=== PATIENT | female | born 1945 | race Two or more races ===

== ENCOUNTER 2022-09-02 23:45 | Inpatient (IN) | payer MEDICARE, OTHER ==
[~2022-09-02] VITALS: Ht 160 cm; Wt 67.3 kg
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
[2022-09-03] MEDS: BLOOD SUGAR DIAGNOSTIC 1 EACH STRIP IN SCH ×2 (00:30→06:40)
[2022-09-03] MEDS ORDERED: INSULIN REGULAR, HUMAN 100 UNIT/ML 3 ML VIAL SQ PRN (00:30)
[2022-09-03] MEDS ORDERED: IV NS 0.9% 1,000 ML IV SCH (00:30)
[2022-09-03] MEDS ORDERED: MORPHINE SULFATE INJ 2 MG/ML DISP.SYRIN IV PRN (00:30)
[2022-09-03] MEDS ORDERED: DEXTROSE 50%-WATER 50 ML DISP.SYRIN IV PRN (00:30)
[2022-09-03] MEDS ORDERED: ONDANSETRON HCL/PF 4 MG/2 ML VIAL IVP PRN (00:30)
[2022-09-03] MEDS ORDERED: hydrALAZINE HCL IV 20 MG VIAL IV PRN (01:00)
--- NOTE | 2022-09-03 02:00 | NUR ---
MS KASSI NOTES PATIENT DAUGHTER NAME ALSO KINSEY CAME AND STARTED TALKING THE PATIENT. SHE STILL CONFUSED, BUT NO SIGNS OF ANY ACUTE DISTRESS NOTED. KINSEY STATES THAT HER MOM LIVES IN ASSISTED BEFORE AND SHE JUST GOT HOME 5 DAYS AGO . SHE SAID WHEN HER MOM IN FACILITY SHE GOT 2 X UTI AND THEY NOTICED THAT SHE'S GETTING CONFUSED SO THEY DECIDED THEM TO BRING HER TO THE HOSPITAL. KINSEY PROVIDED ME SOME INFORMATION ABOUT THE PATIENT AND THE LIST OF HER MEDICATION. SHE ALSO STATES THAT IF ITS OK IF THE PATIENT PUT ON RESTRAINT FOR PT SAFETY. FAMILY REFUSED TO PUT THE TELE MONITOR EVEN I EXPLAINED TO HER WHAT'S THE PURPOSE OF IT . SHE ALSO REFUSED TO HAVE BLOOD SUGAR CHECKED BECAUSE PT NO HX OF DIABETIC. ASSESSMENT DONE AND RECORDED. KEPT PT WARM AND COMFORTABLE AT ALL TIMES. WILL CONTINUE MONITORING. NOTIFY BULK PLANT SUPERVISOR .
[2022-09-03 02:03] VITALS: BP 140/77
[2022-09-03] MEDS: LORAZEPAM 1 MG TABLET PO PRN ×2 (03:02→09:45)
--- NOTE | 2022-09-03 03:02 | NUR ---
MS KASSI NOTES PT STILL ANXIOUS , ATIVAN GIVEN PO ORDERED . SOFT WRIST RESTRAINT ALSO APPLIED WELL. FAMILY AT THE BEDSIDE. NO SIGNS OF ANY ACUTE DISTRESS NOTED.
[2022-09-03] MEDS: ACETAMINOPHEN 325 MG TABLET PO PRN (03:59)
[2022-09-03 04:01] LABS: BASOPHILS % (AUTO) 0.2 % (0.0-2.0); EOSINOPHILS % (AUTO) 0.4 % (0.0-6.0); HEMATOCRIT 37 % (33-45); HEMOGLOBIN 11.9 g/dL (11.5-14.8); LYMPHOCYTES # (AUTO) 0.4 K/uL (0.8-4.8); LYMPHOCYTES % (AUTO) 4.2 % (20.0-44.0); MEAN CORPUSCULAR HGB CONC 32 g/dl (31.0-36.0); MEAN CORPUSCULAR VOLUME 98 fL (82-100); MONOCYTES # (AUTO) 0.9 K/uL (0.1-1.30); MONOCYTES % (AUTO) 8.8 % (2.0-12.0); NEUTROPHILS # (AUTO) 8.5 K/uL (1.8-8.9); NEUTROPHILS % (AUTO) 86.4 % (43.0-81.0); PLATELET COUNT (AUTO) 344 K/uL (150-450); WHITE BLOOD COUNT (AUTO) 9.9 K/uL (4.3-11.0)
[2022-09-03] MEDS ORDERED: METH-647 PO (05:20)
[2022-09-03] MEDS ORDERED: SYMBALTA (05:20)
[2022-09-03] MEDS ORDERED: LORA-258 PO (05:20)
[2022-09-03] MEDS ORDERED: APIX5TAB PO (05:20)
[2022-09-03] MEDS ORDERED: AMIO100T4 PO (05:20)
[2022-09-03] MEDS ORDERED: GABA-536 PO (05:20)
[2022-09-03] MEDS ORDERED: CARV12.52 PO ×2 (05:20→09:40)
[2022-09-03] MEDS ORDERED: FAMO20TA8 PO (05:20)
[2022-09-03] MEDS ORDERED: LOZARTAN PO (05:20)
--- NOTE | 2022-09-03 07:20 | NUR ---
LEASE ANALYST OPENING NOTES RECEIVED PATIENT IN BED ASLEEP BUT AROUSABLE , HUNGARIAN SPEAKER , FAMILY AT BED SIDE , PATIENT IS WITH RESTRAINT AT THIS TIME RELATED TO RISK FOR INJURY , ROOM AIR AND TOLERATED WELL , REFUSED FORMULA CLERK NO SOB OR DISTRESS NOTED , NO C/O OF PAIN AND DISCOMFORT , SAFETY MEASURES PROVIDED , CALL LIGHT WITHIN REACH AND WILL MONITOR FOR ANY CHANGES
--- NOTE | 2022-09-03 07:31 | NUR ---
STEM DRYER MAINTAINER CLOSING NOTES PT AWAKE AND ALERT , CALMED BUT STILL SOME CONFUSION NOTED. IVF NS AT 100 ML/HR INFUSING AT THIS TIME. PT STILL ON RESTRAINT EVEN FAMILY AT THE BEDSIDE BECAUSE PER FAMILY REQUESTED. PUREWICK DRAINING WELL. PT CALMED AFTER ATIVAN GIVEN EARLIER. KEPT HER WARM AND COMFORTABLE AT ALL TIMES. BED IN LOW AND LOCK IN POSITION WITH SIDE RAILS X3 UP. MRSA SWAB ALSO DONE. BLOOD SUGAR CHECKED DONE 110, NO INSULIN DUE AT THIS TIME. NO SIGNS OF HYPO GLYCEMIA NOTED. WILL ENDORSE TO AM NURSE FOR CONTINUITY OF CARE.
--- NOTE | 2022-09-03 07:50 | NUR ---
RN NOTES PATIENT C/O OF BACK PAIN 01/19 AND WITH ORDER OF MORPHINE IV , GIVEN ORDERED .
[2022-09-03 08:00] VITALS: BP 165/78
[2022-09-03] MEDS ORDERED: ENOXAPARIN SODIUM 40 MG/0.4 ML DISP.SYRIN SQ SCH (09:00)
[2022-09-03] MEDS ORDERED: DULO20CA PO (09:40)
[2022-09-03] MEDS: IV NS 0.9% 1,000 ML IV PRN (09:48)
[2022-09-03 09:52] LABS: CALCIUM, SERUM 8.5 mg/dL (8.5-10.1); CARBON DIOXIDE 23 mmol/L (21-32); CHLORIDE 104 mmol/L (98-107); CREATININE 0.5 mg/dL (0.6-1.3); GLUCOSE 112 mg/dL (74-106); POTASSIUM 3.8 mmol/L (3.5-5.1); SODIUM SERUM 136 mmol/L (136-145); UREA NITROGEN, BLOOD 7 mg/dL (7-18)
[2022-09-03] MEDS ORDERED: CARVEDILOL 12.5 MG TABLET PO PRN (11:30)
[2022-09-03 12:00] VITALS: BP_SYST 135
[2022-09-03] MEDS: AMIODARONE HCL 200 MG TABLET PO SCH (12:04)
[2022-09-03] MEDS: GABAPENTIN 400 MG CAPSULE PO SCH ×2 (12:06→17:07)
[2022-09-03] MEDS: METHOCARBAMOL (500MG) 500 MG TABLET PO SCH ×2 (12:06→17:07)
[2022-09-03] MEDS: CEFTRIAXONE 1 G in IV D5W 50 ML IV SCH (13:18)
[2022-09-03 16:00] VITALS: BP 138/82
[2022-09-03] MEDS: APIXABAN 5 MG TABLET PO SCH (17:08)
--- NOTE | 2022-09-03 18:41 | NUR ---
BOXING TRAINER CLOSING NOTES PATIENT IN BED AWAKE , A/OX , CONFUSED , EQUATORIAL GUINEAN SPEAKER , PATIENT IS WITH RESTRAINT AT THIS TIME RELATED TO DISRUPTION OF MEDICAL CARE , ROOM AIR AND TOLERATED WELL , ATTACHED TO CERAMIC PLATER WITH READING OF SR 89 HR , ALL DUE MEDS GIVEN ORDERED , NO SOB OR DISTRESS NOTED ,C/O OF PAIN AND DISCOMFORT AND MORPHINE GIVEN ORDERED AND WITH HELP , SAFETY MEASURES PROVIDED , CALL LIGHT WITHIN REACH AND WILL MONITOR FOR ANY CHANGES
[2022-09-03 20:00] VITALS: BP 142/70
--- NOTE | 2022-09-03 20:00 | NUR ---
ALARM TECHNICIAN OPENING NOTE RECEIVED PATIENT IN BED ASLEEP BUT EASY TO ARISE. PT A/O X1, CONFUSED, AND GAMBIAN SPEAKING. PATIENT IS ON BILATERAL SOFT WRIST RESTRAINTS FOR SAFETY. ON ROOM AIR, AND TOLERATED WELL. PT ON PLATE COLORER, WITH HR: 94. NO SOB OR RESPIRATORY DISTRESS NOTED. IV ACCESS TO RIGHT HAND, IV INTACT, AND PATENT, WITH NS INFUSING AT 75 ML/HR. NO C/O OF PAIN, AND DISCOMFORT. SAFETY MEASURES IN PLACE: BED IN LOW POSITION, SR UP X2, CALL LIGHT WITHIN REACH. WILL MONITOR PT FOR ANY CHANGES.
[2022-09-04] VITALS: BP 109/77
[2022-09-04 04:00] VITALS: BP 138/75
--- NOTE | 2022-09-04 06:56 | NUR ---
PRINTING BINDERY ASSISTANT CLOSING NOTE LEFT PATIENT SLEEPING IN BED BUT EASY TO ARISE. PT A/O X1, CONFUSED, AND AMERICAN SPEAKING. PATIENT IS ON BILATERAL SOFT WRIST RESTRAINTS FOR SAFETY. ON ROOM AIR, AND TOLERATED WELL. PT ON EARLY YEARS TEACHER. NO SOB OR RESPIRATORY DISTRESS NOTED. IV ACCESS TO RIGHT HAND, IV INTACT, AND PATENT, WITH NS INFUSING AT 75 ML/HR. NO S/S OF PAIN, AND DISCOMFORT. SAFETY MEASURES IN PLACE: BED IN LOW POSITION, SR UP X2, CALL LIGHT WITHIN REACH. WILL ENDORSE PT TO MORNING SHIFT NURSE FOR ANGELLA.
[2022-09-04 07:06] LABS: BASOPHILS % (AUTO) 0.3 % (0.0-2.0); EOSINOPHILS % (AUTO) 0.1 % (0.0-6.0); HEMATOCRIT 34 % (33-45); HEMOGLOBIN 11.3 g/dL (11.5-14.8); LYMPHOCYTES # (AUTO) 0.4 K/uL (0.8-4.8); LYMPHOCYTES % (AUTO) 3.8 % (20.0-44.0); MEAN CORPUSCULAR HGB CONC 33 g/dl (31.0-36.0); MEAN CORPUSCULAR VOLUME 95 fL (82-100); MONOCYTES # (AUTO) 1.2 K/uL (0.1-1.30); MONOCYTES % (AUTO) 11.3 % (2.0-12.0); NEUTROPHILS # (AUTO) 9.3 K/uL (1.8-8.9); NEUTROPHILS % (AUTO) 84.5 % (43.0-81.0); PLATELET COUNT (AUTO) 383 K/uL (150-450)
[2022-09-04 07:22] LABS: ALANINE AMINOTRANSFERASE 178 U/L (12-78); ALBUMIN 2.6 g/dL (3.4-5.0); ALKALINE PHOSPHATASE 70 U/L (46-116); ASPARTATE AMINOTRANSFERASE 120 U/L (15-37); BILIRUBIN,TOTAL 0.4 mg/dL (0.2-1.0); CALCIUM, SERUM 8.6 mg/dL (8.5-10.1); CARBON DIOXIDE 19 mmol/L (21-32); CHLORIDE 100 mmol/L (98-107); CREATININE 0.5 mg/dL (0.6-1.3); GLUCOSE 121 mg/dL (74-106); MAGNESIUM 1.6 mg/dL (1.8-2.4); PHOSPHORUS 2.1 mg/dL (2.5-4.9); SODIUM SERUM 135 mmol/L (136-145); TOTAL PROTEIN, SERUM 6.6 g/dL (6.4-8.2); UREA NITROGEN, BLOOD 5 mg/dL (7-18)
--- NOTE | 2022-09-04 07:30 | NUR ---
BRANCH OPERATION EVALUATION MANAGER OPENING NOTES RECEIVED PATIENT IN BED AWAKE WITH CONFUSION , FRISIAN SPEAKER ROOM AIR , PATIENT IS WITH RESTRAINT AT THIS TIME RELATED DISRUPTION OF MEDICAL CARE , ROOM AIR AND TOLERATED WELL , ON TELE MONITOR SR AT THIS TIME . NO SOB OR DISTRESS NOTED , NO C/O OF PAIN AND DISCOMFORT , IV ACCESS ON THE RIGHT HAND G # 20 WITH NS @75 ML /HOUR , SAFETY MEASURES PROVIDED , CALL LIGHT WITHIN REACH AND WILL MONITOR FOR ANY CHANGES
[2022-09-04 07:41] LABS: POTASSIUM 2.8 mmol/L (3.5-5.1)
[2022-09-04 08:29] VITALS: BP 148/85
[2022-09-04] MEDS: METHOCARBAMOL (500MG) 500 MG TABLET PO SCH ×3 (08:59→17:11)
[2022-09-04] MEDS: FAMOTIDINE (20 MG) 20 MG TABLET PO SCH (08:59)
[2022-09-04] MEDS: GABAPENTIN 400 MG CAPSULE PO SCH ×3 (09:00→17:11)
[2022-09-04] MEDS: DULOXETINE HCL 20 MG CAPSULE.DR PO SCH (09:00)
[2022-09-04] MEDS: CARVEDILOL 12.5 MG TABLET PO SCH (09:01)
[2022-09-04] MEDS: AMIODARONE HCL 200 MG TABLET PO SCH (09:01)
[2022-09-04] MEDS: APIXABAN 5 MG TABLET PO SCH ×2 (09:08→17:11)
[2022-09-04] MEDS ORDERED: POTASSIUM CHLORIDE 20 MEQ POWDER PACKET PO ONE (10:00)
[2022-09-04] MEDS: Magnesium 1GM/D5W 100ML PREMIX 100 ML IV SCH ×2 (10:20→11:20)
[2022-09-04 11:16] VITALS: BP 113/68
[2022-09-04 12:27] LABS: THYROID STIMULATING HORMONE 0.411 uIU/mL (0.358-3.74)
[2022-09-04] MEDS ORDERED: NEUTRA PHOS 1 POWD.PACKET PO ONE (13:00)
[2022-09-04] MEDS: CEFTRIAXONE 1 G in IV D5W 50 ML IV SCH (14:03)
[2022-09-04] MEDS: IV NS 0.9% 1,000 ML IV PRN (14:04)
[2022-09-04 16:13] VITALS: BP 110/67
--- NOTE | 2022-09-04 19:30 | NUR ---
CARTON FILLER OPENING NOTE RECEIVED PT AWAKE IN BED. A/O X1 AND LUXEMBOURGISH SPEAKING ONLY. PT STABLE ON ROOM AIR, TOLERATING WELL. NO SOB OR S/S OF RESPIRATORY DISTRESS. BREATHING EVEN AND UNLABORED. ON EXTERNAL WEIGHTER READING SR 86 BPM. IV ACCESS R HAND 20 G, INTACT AND PATENT, RUNNING NS @ 75 ML/HR. WITH BILATERAL SOFT WRIST RESTRAINTS, RELEASED AT THIS TIME. SAFETY PRECAUTIONS IN PLACE. BED IN LOWEST LOCKED POSITION, HOB ELEVATED, SIDE RAILS UP X3, AND CALL LIGHT AND TABLE WITHIN REACH. ALL NEEDS MET AT THIS TIME.
--- NOTE | 2022-09-04 19:36 | NUR ---
DIFFUSION OPERATOR CLOSING NOTES PATIENT IN BED AWAKE , A/OX , CONFUSED , CITIZEN OF [place] SPEAKER , PATIENT IS WITH RESTRAINT AT THIS TIME RELATED TO DISRUPTION OF MEDICAL CARE , WAS OFF AND PATIENT WITH NO BEHAVIOR AT THIS TIME , ROOM AIR AND TOLERATED WELL , ATTACHED TO SUPERVISOR BLOOMING MILL WITH READING OF SR 89 HR , ALL DUE MEDS GIVEN ORDERED , POTASSIUM WAS LOW AND REPLACED WITH 60 MEQ , MG WAS GIVEN 2 MG IV AND REPEAT IN AM , NO SOB OR DISTRESS NOTED , NO C/O OF PAIN AND DISCOMFORT , SAFETY MEASURES PROVIDED , CALL LIGHT WITHIN REACH AND WILL MONITOR FOR ANY CHANGES
[2022-09-04 20:00] VITALS: BP 129/77
[2022-09-05] VITALS: BP 135/79
[2022-09-05 04:00] VITALS: BP 140/87
[2022-09-05 05:56] LABS: BASOPHILS % (AUTO) 0.4 % (0.0-2.0); EOSINOPHILS % (AUTO) 0.1 % (0.0-6.0); HEMATOCRIT 34 % (33-45); HEMOGLOBIN 11.2 g/dL (11.5-14.8); LYMPHOCYTES # (AUTO) 0.6 K/uL (0.8-4.8); LYMPHOCYTES % (AUTO) 5.5 % (20.0-44.0); MEAN CORPUSCULAR HGB CONC 34 g/dl (31.0-36.0); MEAN CORPUSCULAR VOLUME 95 fL (82-100); MONOCYTES # (AUTO) 1.2 K/uL (0.1-1.30); MONOCYTES % (AUTO) 11.6 % (2.0-12.0); NEUTROPHILS # (AUTO) 8.5 K/uL (1.8-8.9); NEUTROPHILS % (AUTO) 82.4 % (43.0-81.0); PLATELET COUNT (AUTO) 400 K/uL (150-450); RED BLOOD CELL COUNT(AUTO) 3.55 MIL/uL (4.0-5.2); WHITE BLOOD COUNT (AUTO) 10.3 K/uL (4.3-11.0)
[2022-09-05 06:18] LABS: CALCIUM, SERUM 8.6 mg/dL (8.5-10.1); CARBON DIOXIDE 24 mmol/L (21-32); CHLORIDE 103 mmol/L (98-107); CREATININE 0.4 mg/dL (0.6-1.3); POTASSIUM 3.4 mmol/L (3.5-5.1); SODIUM SERUM 136 mmol/L (136-145)
[2022-09-05 06:26] LABS: GLUCOSE 145 mg/dL (74-106); UREA NITROGEN, BLOOD 7 mg/dL (7-18)
--- NOTE | 2022-09-05 06:51 | NUR ---
FOOTWEAR MACHINERY INSTRUCTOR CLOSING NOTE PT AWAKE IN BED. A/O X1 AND NAURUAN SPEAKING ONLY. PT STABLE ON ROOM AIR, TOLERATING WELL. NO SOB OR S/S OF RESPIRATORY DISTRESS. BREATHING EVEN AND UNLABORED. ON EXTERNAL CHECKER/STOCKER READING SR 84 BPM. IV ACCESS R HAND 20 G, INTACT AND PATENT, RUNNING NS @ 75 ML/HR. ALL DUE MEDS GIVEN ORDERED. KEPT CLEAN AND DRY. SAFETY PRECAUTIONS IN PLACE AT ALL TIMES. BED IN LOWEST LOCKED POSITION, HOB ELEVATED, SIDE RAILS UP X3, AND CALL LIGHT AND TABLE WITHIN REACH. ALL NEEDS MET AT THIS TIME AND WILL ENDORSE TO ONCOMING NURSE FOR ANGELLA.
[2022-09-05 07:00] VITALS: BP 145/77
--- NOTE | 2022-09-05 07:46 | NUR ---
CERTIFIED TECHNICIAN SPECIALIST OPENING NOTE PT SLEEPING IN BED, EASILY AROUSED TO EXTERNAL STIMULI, A/O X1 AND GREEK SPEAKING ONLY. PT STABLE ON ROOM AIR, TOLERATING WELL. NO SOB OR S/S OF RESPIRATORY DISTRESS. BREATHING EVEN AND UNLABORED. ON EXTERNAL DROP WIRE STRINGER READING SR 80'S BPM. IV ACCESS R HAND 20 G. SAFETY PRECAUTIONS IN PLACE AT ALL TIMES. BED IN LOWEST LOCKED POSITION, HOB ELEVATED, SIDE RAILS UP X3, AND CALL LIGHT AND TABLE WITHIN REACH. WILL CONTINUE TO MONITOR.
[2022-09-05] MEDS ORDERED: POTASSIUM CHLORIDE 20 MEQ POWDER PACKET PO ONE (08:00)
[2022-09-05] MEDS: DULOXETINE HCL 20 MG CAPSULE.DR PO SCH (08:33)
[2022-09-05] MEDS: FAMOTIDINE (20 MG) 20 MG TABLET PO SCH (08:33)
[2022-09-05] MEDS: GABAPENTIN 400 MG CAPSULE PO SCH ×3 (08:33→17:04)
[2022-09-05] MEDS: METHOCARBAMOL (500MG) 500 MG TABLET PO SCH ×3 (08:33→17:04)
[2022-09-05] MEDS: AMIODARONE HCL 200 MG TABLET PO SCH (08:33)
[2022-09-05] MEDS: CARVEDILOL 12.5 MG TABLET PO SCH (08:35)
[2022-09-05] MEDS: APIXABAN 5 MG TABLET PO SCH ×2 (08:41→17:05)
[2022-09-05 12:20] VITALS: BP 117/74
[2022-09-05] MEDS: CEFTRIAXONE 1 G in IV D5W 50 ML IV SCH (13:07)
[2022-09-05] MEDS ORDERED: CEPH500C2 PO (14:12)
[2022-09-05 16:20] VITALS: BP 126/75
--- NOTE | 2022-09-05 19:36 | NUR ---
DISCHARGED NOTE PATIENT DISCHARGED TO [facility] IN STABLE CONDITION. A/OX1 AZERBAIJANI SPEAKING. NOT IN CARDIAC OR RESPIRATORY DISTRESS. ALL DUE MEDS GIVEN. ALL BELONGINGS ACCOUNTED TO THE PATIENT. DISCHARGED INSTRUCTION DISCUSSED TO PATIENT'S DAUGHTER AND RELAYED TO MS. [facility] OF [facility]. IV ACCESS REMOVED, NO BLEEDING NOTED. DISCHARGED.
[2022-09-05] MEDS: ACETAMINOPHEN 325 MG TABLET PO PRN (19:48)
== END 2022-09-05 19:36 | DRG 689 ==
LOC: TELE 23:45
PROVIDERS: ADMIT Internal Medicine; ATTEND Nurse Practitioner Acute Care
DX: N39.0 Urinary tract infection, site not specified (principal); G92.8 Other toxic encephalopathy; I50.33 Acute on chronic diastolic (congestive) heart failure; I11.0 Hypertensive heart disease with heart failure; B96.89 Other specified bacterial agents as the cause of diseases classified elsewhere; F03.90 Unspecified dementia, unspecified severity, without behavioral disturbance, psychotic disturbance, mood disturbance, and anxiety; I48.0 Paroxysmal atrial fibrillation; E87.6 Hypokalemia; E83.42 Hypomagnesemia; E83.39 Other disorders of phosphorus metabolism; Z91.81 History of falling; R29.6 Repeated falls; F32.A Depression, unspecified; M06.9 Rheumatoid arthritis, unspecified; K21.9 Gastro-esophageal reflux disease without esophagitis; Z88.1 Allergy status to other antibiotic agents; Z20.822 Contact with and (suspected) exposure to COVID-19
CPT/HCPCS: 36415; 70450-TC; 80048-TC; 80053-TC; 82140-TC; 82607-TC; 82962-TC; 83605-TC; 83735-TC; 84100-TC; 84443-TC; 85025-TC; 87040-TC; 87081-TC; 93307-TC; 97110-TC; 97112-TC; 97530-TC; 97535-TC; A4223; G0378; J0696; J1650; J1815; J2270; J3475; J7030; J7060